=== PATIENT | male | born 2005 | race Caucasian/White ===

== ENCOUNTER 2024-11-03 10:44 | Emergency (ER) | payer BC, SELFPAY ==
[2024-11-03 11:13] LABS: #Basophils 0.06 10x3/uL (0.0-0.2); %Basophils 0.9 % (0.0-1.0); %Eosinophils 3.9 % (0.0-10.0); %Lymphocytes 24.1 % (21.0-51.0); %Monocytes 7.6 % (0.0-10.0); %Neutrophils 63.4 % (42.0-75.0); Hematocrit 40.4 % (42.0-52.0); Hemoglobin 14.2 g/dL (14.0-18.0); Mean Corpuscular HGB CONC 35.1 g/dL (32.0-36.0); Mean Corpuscular Hemoglobin 29.6 pg (27.0-31.0); Mean Corpuscular Volume 84.2 fL (78.0-98.0); Mean Platelet Volume 10.3 fL (7.4-10.4); Platelet Count 234 10x3/uL (130-400); RBC Distribution Width 12.7 % (11.5-14.5)
[2024-11-03 11:30] LABS: INR-International Normal Ratio 0.9; PTT 27.4 sec (22.9-36.1); Prothrombin Time 12.4 sec (12.0-14.7)
[2024-11-03 11:32] LABS: ALT (SGPT) 9 U/L (Less than 45); AST (SGOT) 22 U/L (11-34); Albumin 4.6 g/dL (3.1-4.5); Alkaline Phosphatase 56 U/L (40-110); Anion Gap 13 mmol/L (10-20); BUN (Urea Nitrogen) 15 mg/dL (8.9-20.6); Bilirubin, Total 0.3 mg/dL (0.3-1.2); Calc. Creatinine Clearance 0 mL/min (70-130); Calcium 9.3 mg/dL (7.8-10.44); Carbon Dioxide 25 mmol/L (22-29); Chloride 107 mmol/L (98-107); Estimated GFR 109; Globulin 3.5 g/dL (2.4-3.5); Glucose 97 mg/dL (70-105); Potassium 3.9 mmol/L (3.5-5.1); Protein, Total 8.1 g/dL (6.0-8.3); Sodium 141 mmol/L (136-145)
[2024-11-03 11:36] LABS: Troponin I Less than 0.010 ng/mL (< 0.028)
[2024-11-03] MEDS ORDERED: Lidocaine Viscous Sol 2% 15 ml UD Cup ONE (11:40)
[2024-11-03] MEDS ORDERED: Mag-Al 1200 mg/1200 mg/30 ML UDCUP ONE (11:40)
== END 2024-11-03 13:55 | disposition home or self-care (01) ==
LOC: ERS 10:44
DX: S06.0X0A Concussion without loss of consciousness, initial encounter (principal); K29.71 Gastritis, unspecified, with bleeding; F17.220 Nicotine dependence, chewing tobacco, uncomplicated; F17.290 Nicotine dependence, other tobacco product, uncomplicated; X58.XXXA Exposure to other specified factors, initial encounter
CPT/HCPCS: 36415; 70450; 71045; 80053; 84484; 85025; 85610; 85730; 86850; 86900; 86901; 87428; 93005